=== PATIENT | male | born 1955 | race Caucasian/White ===

== ENCOUNTER → 2019-11-28 | Outpatient (CLI) | payer MEDICARE, OTHER | END | disposition home or self-care (01) | LOC: CFH 14:51 | PROVIDERS: ATTEND Nurse Practitioner | DX: Z12.2 Encounter for screening for malignant neoplasm of respiratory organs (principal); I25.10 Atherosclerotic heart disease of native coronary artery without angina pectoris; J84.10 Pulmonary fibrosis, unspecified; Z87.891 Personal history of nicotine dependence | CPT/HCPCS: G0297 ==